=== PATIENT | female | born 1995 | race Caucasian/White ===

== ENCOUNTER 2019-04-21 12:13 | Emergency (ER) | payer OTHER ==
[~2019-04-21] VITALS: Ht 165.1 cm; Wt 63.6 kg
[2019-04-21 12:17] VITALS: BP 119/81
== END 2019-04-21 14:18 | disposition home or self-care (01) ==
LOC: ER 12:14
DX: J06.9 Acute upper respiratory infection, unspecified (principal)
CPT/HCPCS: 87081; 87880; 99283